=== PATIENT | male | born 1985 | race Caucasian/White ===

== ENCOUNTER 2022-09-30 10:47 | Emergency (ER) | payer SELFPAY ==
[~2022-09-30] VITALS: Ht 162.6 cm; Wt 72.7 kg
[2022-09-30 11:09] VITALS: O2SAT 99
[2022-09-30] MEDS ORDERED: MAGNESIUM/ALUMINUM HYDROXIDE/SIMETHICONE 30ML UDC PO STA (11:24)
[2022-09-30] MEDS ORDERED: ONDANSETRON 4MG ODT PO STA (11:24)
[2022-09-30 11:40] LABS: BASOPHILS % 0.1 % (0.0-2.0); EOSINOPHILS % 2.2 % (0.0-5.0); HEMATOCRIT. 47.7 % (42.0-52.0); HEMOGLOBIN. 16.6 g/dL (14.0-18.0); LYMPHOCYTES % 34.6 % (20.0-50.0); MEAN CORPUSCULAR HEMOGLOBIN 31.2 pg (28.0-32.0); MEAN CORPUSCULAR VOLUME 89.8 fL (80.0-94.0); MEAN PLATELET VOLUME 9.4 fl (7.4-10.4); MONOCYTES % 10.7 % (2.0-8.0); NEUTROPHILS % 52.4 % (40.0-76.0); PLATELET 202 x1000/uL (130-400); RED BLOOD CELL COUNT 5.31 mill/uL (4.7-6.1)
[2022-09-30 11:48] LABS: CHLORIDE 109 mEq/L (98-107)
[2022-09-30 16:22] LABS: CLARITY URINE CLEAR (CLEAR); COLOR URINE DARK YELLOW (YELLOW); KETONES URINE NEGATIVE (NEGATIVE); LEUKOCYTE ESTERASE URINE NEGATIVE (NEGATIVE); NITRITE URINE NEGATIVE (NEGATIVE); OCCULT BLOOD URINE 2+ (NEGATIVE); PROTEIN URINE 2+ (NEGATIVE); SPECIFIC GRAVITY URINE 1.028 (1.005-1.030); UROBILINOGEN URINE 0.2 E.U./dL (0.2-1.0)
[2022-09-30] MEDS ORDERED: ONDA4TAB50 MT (18:35)
[2022-09-30 19:14] VITALS: BP 128/90; PULSE 80; RESP 16; TEMP 98.1
[2022-09-30] MEDS ORDERED: MAGNESIUM/ALUMINUM HYDROXIDE/SIMETHICONE 30ML UDC PO NR (19:15)
[2022-09-30] MEDS ORDERED: ONDANSETRON 4MG ODT PO NR (19:15)
== END 2022-09-30 19:27 | disposition home or self-care (01) ==
LOC: ER 10:47
DX: R11.2 Nausea with vomiting, unspecified (principal); R19.7 Diarrhea, unspecified
CPT/HCPCS: 99291; 80053; 81003; 83690; 85025; 36415; 93005; Q0162